=== PATIENT | male | born 1990 | race African-American/Black ===

== ENCOUNTER 2016-12-03 17:52 | Emergency (ER) | payer SELFPAY ==
[~2016-12-03] VITALS: Ht 154.9 cm; Wt 69.1 kg
[2016-12-03] MEDS ORDERED: ALBUTEROL SULFATE 2.5 MG/0.5 ML NEB SOLUTION NEB ONE (20:00)
[2016-12-03 20:22] VITALS: BP 134/92
== END 2016-12-03 20:25 | disposition home or self-care (01) ==
LOC: EMS 17:53
DX: J40 Bronchitis, not specified as acute or chronic (principal); Z88.0 Allergy status to penicillin
CPT/HCPCS: 71010; 94060; 94640; 99283; J7613

== ENCOUNTER 2018-12-30 03:33 | Emergency (ER) | payer OTHER ==
[~2018-12-30] VITALS: Ht 188 cm; Wt 74.1 kg
[2018-12-30] MEDS ORDERED: KETOROLAC TROMETHAMINE 30 MG/ML VIAL IM ONE (04:45)
[2018-12-30] MEDS ORDERED: IBUPROFEN 800 MG TABLET PO ONE (05:30)
[2018-12-30 06:20] VITALS: BP 120/75
== END 2018-12-30 06:27 | disposition home or self-care (01) ==
LOC: EMS 03:35
DX: R10.13 Epigastric pain (principal); R05 Cough; F12.90 Cannabis use, unspecified, uncomplicated; Z88.0 Allergy status to penicillin; Z88.8 Allergy status to other drugs, medicaments and biological substances
CPT/HCPCS: J1885